=== PATIENT | female | born 1970 | race Caucasian/White ===

== ENCOUNTER 2020-08-22 17:27 | Emergency (ER) | payer OTHER ==
[2020-08-22] MEDS ORDERED: DIPHTH,PERTUSS(ACELL),TET 0.5 ML DISP.SYRIN IM ONE ×2 (17:49→17:50)
[2020-08-22 17:51] VITALS: BP 171/81; PULSE 75; TEMP 98.6; BMI 26.4
--- NOTE | 2020-08-22 18:12 | PDOC ---
History of Present Illness - General Chief Complaint: Injury Stated Complaint: L HAND LACERATION Time Seen by Provider: 08/22/20 17:40 History Source: Patient Exam Limitations: Clinical Condition - History of Present Illness Initial Comments: 08/22/20 18:26 Patient with no significant past medical history present with complaint of laceration to left hand over thumb area status post accidentally cutting the hand with a kitchen knife while cutting planting. Patient does not recall last tetanus vaccine. Denies difficulty moving left thumb. Denies numbness or tingling sensation. Denies any other symptoms. Patient has not taken anything for symptoms Timing/Duration: reports: just prior to arrival Location: reports: hands (left thumb laceration) Respiratory Risk Factors: reports: no cause identified Past History - Medical History Allergies/Adverse Reactions: Allergies Allergy/AdvReac Type Severity Reaction Status Date / Time No Known Allergies Allergy Verified 08/22/20 17:34 Home Medications: Ambulatory Orders Diphenhydramine HCl [Benadryl -] 25 mg PO Q4H PRN #18 capsule 01/13/16 Epinephrine 0.3 mg IM ONCE PRN #2 ml 01/13/16 Ranitidine [Zantac -] 150 mg PO BID #8 tablet 01/13/16 predniSONE [Deltasone] 20 mg PO BID #8 tablet 01/13/16 Amox-Tr/K Cl [Augmentin - 875Mg Tablet] 1 tab PO BID #14 tablet 08/22/20 Ibuprofen 600 mg PO Q8H PRN #16 tablet 08/22/20 COPD: No HTN: Yes - Reproductive History Is Patient Now?: No - Psycho-Social/Smoking History Smoking Status: No Smoking History: Never smoked Have you smoked in the past 12 months: No Number of Cigarettes Smoked Daily: 0 - Substance Abuse Hx (Audit-C & DAST Scrn) How often the patient has a drink containing alcohol: Never Score: In Men: 4 or > Positive; In Women: 3 or > Positive: 0 Screen Result (Pos requires Nsg. Audit-10AR): Negative In the last yr the pt used illegal drug/Rx for NonMed reason: No Score: Yes response is considered Positive: 0 Screen Result (Positive result requires Nsg. DAST-10): Negative Review of Systems - Review of Systems Able to Perform ROS?: Yes Is the patient limited Occitan proficient: No Constitutional: No: Chills, Fever, Malaise HEENTM: No: Symptoms Reported Respiratory: No: Symptoms reported Cardiac (ROS): No: Symptoms Reported ABD/GI: No: Symptoms Reported Musculoskeletal: Yes: Symptoms Reported, See HPI, Muscle Pain (left thumb pain) Integumentary: Yes: Symptoms Reported, See HPI, Other (left thumb laceration) Neurological: No: Symptoms reported, Numbness, Paresthesia, Tingling, Weakness All Other Systems: Reviewed and Negative *Physical Exam - Vital Signs Last Vital Signs Temp Pulse Resp BP Pulse Ox 98.6 F 75 16 171/81 H 100 08/22/20 17:35 08/22/20 17:35 08/22/20 17:35 08/22/20 17:35 08/22/20 17:35 - Physical Exam 08/22/20 18:21 GENERAL: Well developed, well nourished. Awake and alert. No acute distress. PULMONARY: No evidence of respiratory distress. MUSCULOSKELETAL : Moderate tenderness over dorsal aspect of proximal phalange of left thumb over 3 cm linear superficial laceration. Full range of motion of left thumb. 5 out of 5 strength left thumb. No bony deformities SKIN: Warm and dry. Normal capillary refill. 3 cm superficial linear laceration over dorsal aspect of proximal phalange of left thumb with minimal bleeding NEUROLOGICAL: Alert, awake, appropriate. No motor deficits in the lower extremities. Gait is normal without ataxia. PSYCHIATRIC: Cooperative. Good eye contact. Appropriate mood and affect. General Appearance: Yes: Nourished, Appropriately Dressed. No: Apparent Distress Procedures - Laceration/Wound Repair Left Posterior Proximal Dorsal Hand 1st digit Wound Length: 2.6 to 5.0 cm (3cm) Wound Explored: clean Wound's Depth, Shape: superficial, linear Irrigated w/ Saline: Yes Betadine Prep: Yes Anesthesia: 1% Lidocaine Amount of Anesthetic (ccs): 2 Wound Repaired With: Sutures Suture Size/Type: 4:0, nylon Number of Sutures: 6 Layer Closure: No Sterile Dressing Applied: Yes Splint Applied: No Sling Applied: No Progress: 08/22/20 18:25 3 cm linear laceration to dorsal aspect of proximal aspect of left thumb extending to left thenar muscle cleaned with Betadine and infiltrated with 2 cc 1% lidocaine. Wound copiously irrigated with normal saline. Wound closed with 6 interrupted 4-0 nylon sutures with close approximation. Hemostasis achieved. Wound covered with adhesive bandage. Left hand and wrist wrapped with stretch gauze. Tetanus vaccine given. Patient tolerated procedure well ED Treatment Course - Medications Given in the ED: ED Medications Discontinued Medications Generic Name Dose Route Start Last Admin Trade Name Wellingtonq PRN Reason Stop Dose Admin Diphtheria/Tetanus/Acell Pertussis 0.5 ml 08/22/20 17:49 08/22/20 17:54 Boostrix - IM 08/22/20 17:50 0.5 ml .ONCE ONE Administration Medical Decision Making - Medical Decision Making 08/22/20 18:26 Patient with no significant past medical history present with complaint of laceration to left hand over thumb area status post accidentally cutting the hand with a kitchen knife while cutting planting. Patient does not recall last tetanus vaccine. Denies difficulty moving left thumb. Denies numbness or tingling sensation. Denies any other symptoms. Patient has not taken anything for symptoms Exam significant for 3 cm superficial laceration to dorsal aspect of left proximal thumb extending to thenar muscle with minimal bleeding. Full range of motion of left thumb. Normal strength left thumb 3 cm linear laceration to dorsal aspect of proximal aspect of left thumb extending to left thenar muscle cleaned with Betadine and infiltrated with 2 cc 1% lidocaine. Wound copiously irrigated with normal saline. Wound closed with 6 interrupted 4-0 nylon sutures with close approximation. Hemostasis achieved. Wound covered with adhesive bandage. Left hand and wrist wrapped with stretch gauze. Tetanus vaccine given. Patient tolerated procedure well Patient stable for discharge on Augmentin antibiotic for infection prophylaxis and Motrin PRN for pain. Patient educated on continues home wound care. Patient stable for discharge with follow-up in 1 week for suture removal Discharge - Discharge Information Problems reviewed: Yes Clinical Impression/Diagnosis: Laceration of left thumb without complication Qualifiers: Encounter type: initial encounter Qualified Code(s): S61.012A - Laceration without foreign body of left thumb without damage to nail, initial encounter Condition: Stable Disposition: HOME - Admission No - Additional Discharge Information Prescriptions: Amox-Tr/K Cl [Augmentin - 875Mg Tablet] 1 tab PO BID #14 tablet Ibuprofen 600 mg PO Q8H PRN #16 tablet PRN Reason: pain - Follow up/Referral - Patient Discharge Instructions Patient Printed Discharge Instructions: DI for Laceration Repair -- Simple Additional Instructions: Keep wound clean and dry for the next 24 hours. Apply bacitracin to wound twice a day. Take prescribed antibiotics and finish it. Take prescribed Motrin as needed for pain. Follow-up in 1 week for suture removal - Post Discharge Activity
== END 2020-08-22 18:15 | disposition home or self-care (01) ==
LOC: JER 17:27
PROC: 0HQGXZZ Repair Left Hand Skin, External Approach (ICD-10-PCS; principal; 2020-08-22)
PROC: 3E0234Z Introduction of Serum, Toxoid and Vaccine into Muscle, Percutaneous Approach (ICD-10-PCS; 2020-08-22)
DX: S61.012A Laceration without foreign body of left thumb without damage to nail, initial encounter (principal)
CPT/HCPCS: 90715; 99284-25

== ENCOUNTER 2020-09-02 14:44 | Emergency (ER) | payer OTHER ==
[2020-09-02 14:51] VITALS: BP 139/75; PULSE 85; TEMP 97.9; BMI 26.4
--- NOTE | 2020-09-02 15:19 | PDOC ---
History of Present Illness - General Chief Complaint: Suture/Staple Removal(Here) Stated Complaint: REMOVE STITCHES Time Seen by Provider: 09/02/20 14:58 History Source: Patient Exam Limitations: No Limitations - History of Present Illness Initial Comments: 09/02/20 15:17 50 year old female here for suture removal to left hand. Initial injury 9 days ago, denies fever chills discharge for wound. Past History - Medical History Allergies/Adverse Reactions: Allergies Allergy/AdvReac Type Severity Reaction Status Date / Time No Known Allergies Allergy Verified 09/02/20 14:48 Home Medications: Ambulatory Orders Diphenhydramine HCl [Benadryl -] 25 mg PO Q4H PRN #18 capsule 01/13/16 Epinephrine 0.3 mg IM ONCE PRN #2 ml 01/13/16 Ranitidine [Zantac -] 150 mg PO BID #8 tablet 01/13/16 predniSONE [Deltasone] 20 mg PO BID #8 tablet 01/13/16 Amox-Tr/K Cl [Augmentin - 875Mg Tablet] 1 tab PO BID #14 tablet 08/22/20 Ibuprofen 600 mg PO Q8H PRN #16 tablet 08/22/20 COPD: No HTN: Yes - Reproductive History Is Patient Now?: No - Psycho-Social/Smoking History Smoking Status: No Smoking History: Never smoked Have you smoked in the past 12 months: No Number of Cigarettes Smoked Daily: 0 - Substance Abuse Hx (Audit-C & DAST Scrn) How often the patient has a drink containing alcohol: Never Score: In Men: 4 or > Positive; In Women: 3 or > Positive: 0 Screen Result (Pos requires Nsg. Audit-10AR): Negative *Physical Exam - Vital Signs Last Vital Signs Temp Pulse Resp BP Pulse Ox 97.9 F 85 16 139/75 100 09/02/20 14:48 09/02/20 14:48 09/02/20 14:48 09/02/20 14:48 09/02/20 14:48 - Physical Exam 09/02/20 15:18 AOx3 NAD CTA RRR Left hand: well healing 3cm wound with sutures in place. No erythema or swelling Medical Decision Making - Medical Decision Making 09/02/20 15:18 50 year old female here for suture removal VSS Sutures removed without complication Pt is safe and stable for discharge Return precautions given Discharge - Discharge Information Problems reviewed: Yes Clinical Impression/Diagnosis: Encounter for removal of sutures Condition: Stable Disposition: HOME - Follow up/Referral - Patient Discharge Instructions Patient Printed Discharge Instructions: DI for Suture Removal Print Language: AUSTRIAN - Post Discharge Activity
--- OUTSIDE RECORDS SUMMARY | 2020-09-02 15:33 | XMS ---
:1970 Author Organization [facility] Care Team Providers Name Role Phone TAYA HALL Unavailable Unavailable Anyichie, Nonyelu Bassam ARGUETA Unavailable Unavailable Anyichie, I Unavailable Unavailable Anyichie, I Unavailable Unavailable Anyichie, I Unavailable Unavailable Anyichie, I Unavailable Unavailable Anyichie, I Unavailable Unavailable VANDA Fofana Unavailable Unavailable Re-disclosure Warning The records that you are about to access may contain information from federally- assisted alcohol or drug abuse programs. If such information is present, then the following federally mandated warning applies: This information has been disclosed to you from records protected by federal confidentiality rules (42 CFR part 2). The federal rules prohibit you from making any further disclosure of this information unless further disclosure is expressly permitted by the written consent of the person to whom it pertains or as otherwise permitted by 42 CFR part 2. A general authorization for the release of medical or other information is NOT sufficient for this purpose. The Federal rules restrict any use of the information to criminally investigate or prosecute any alcohol or drug abuse patient.The records that you are about to access may contain highly sensitive health information, the redisclosure of which is protected by Article 27-F of the [place] State Public Health law. If you continue you may haveaccess to information: Regarding HIV / AIDS; Provided by facilities licensed or operated by the [facility] Office of Mental Health; or Provided by the [facility] Office for People With Developmental Disabilities. If such information is present, then the following [facility] mandated warning applies: This information has been disclosed to you from confidential records which are protected by state law. State law prohibits you from making any further disclosure of this information without the specific written consent of the person to whom it pertains, or as otherwise permitted by law. Any unauthorized further disclosure in violation of state law may result in a fine or penitentiary sentence or both. A general authorization for the release of medical or other information is NOT sufficient authorization for further disclosure. Encounters Encounter Providers Location Date Indications Data Source(s ) Outpatient Admitter: Kristie Llamas 06/26/2020 [facility] EDT Outpatient Attender: Kristie Llamas 06/26/2020 [facility] MDAdmitter: 06:51:00 AM Med [facility] Kristie Chen EDT - MDReferrer: Kristie 06/26/2020 Gustavo ARGUETA 11:45:00 AM EDT Outpatient Attender: TAYA Llamas 06/21/2020 [facility] 07:25:00 AM [facility] Center LAdmitter: TAYA BAIN LReferrer: TAYA Retana Outpatient Attender: KAZ Llamas 02/01/2020 [facility] 10:35:00 AM Medical C enter PAdmitter: KAZ MCCURDY PReferrer: KAZ Fofana Insurance Providers Payer name Policy type Policy ID Covered Covered democrat's Policy P debora / Coverage democrat ID relationship to [place] Inf ormation type almeida AFFINITY [id number] SP [id number] ESSENTIAL PLAN 1 2 AFFINITY O [id number] 01 [id number] ESSENTIALS-COM MERCIAL AFFINITY O [id number] 01 [id number] HEALTH PLAN Medicaid [id number] S [id number] Wrap Claims Dental [id number] S [id number] Dentaquest MKD [place] [facility] [id number] S [id number] [facility] Medicaid [id number] S [id number] Regular Clinic Visit [facility] [id number] S [id number] [place] Medicaid Problems, Conditions, and Diagnoses Code Display Name Description Problem Type Effective Data Sour ce(s) Dates E78.5 Hyperlipidemia, HYPERLIPIDEMIA, Diagnosis 06/26/2020 [facility] unspecified UNSPECIFIED 06:51:[address] EDT J45.909 Unspecified UNSPECIFIED Diagnosis 06/26/2020 [facility] asthma, ASTHMA, 06:51:00 AM Medical Eun r uncomplicated UNCOMPLICATED EDT I10 Essential ESSENTIAL Diagnosis 06/26/2020 [facility] (primary) (PRIMARY) 06:51:00 AM Medical Eun [facility] hypertension HYPERTENSION EDT D25.1 Intramural INTRAMURAL Diagnosis 06/26/2020 [facility] leiomyoma of LEIOMYOMA OF 06:51:00 AM Medical C enter uterus UTERUS EDT 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 [facility] Vilchis uteri UTERI 06:51:00 AM Medical rEice r EDT Z01.818 Encounter for ENCOUNTER FOR Diagnosis 02/01/2020 [facility] other OTHER 10:35:00 AM Medical Eun r preprocedural PREPROCEDURAL EDT examination EXAMINATION J45.40 Moderate MODERATE Diagnosis 02/01/2020 [facility] persistent asthma, PERSISTENT ASTHMA, 10:35:00 AM Medical Center uncomplicated UNCOMPLICATED EDT Results ID Date Data Source [id number] 06/21/2020 12:00:00 AM EDT [facility] Name Value Range Interpretation Code Description Data Zainab rce(s) Supporting Document(s ) 2019-nCoV [facility] RNA XXX CELIA+probe- Imp This lab was ordered by [facility] and reported by [facility]. Procedure
== END 2020-09-02 15:42 | disposition home or self-care (01) ==
LOC: JERFT 14:44
DX: Z48.02 Encounter for removal of sutures (principal)
CPT/HCPCS: 99281-25

== ENCOUNTER 2024-05-17 16:23 | Emergency (ER) | payer OTHER ==
[2024-05-17 16:34] VITALS: RESP 18; BMI 26.6
[2024-05-17 17:58] LABS: BASO % 0.5 % (0-2.0); EOS % 0.5 % (0-4.5); HEMATOCRIT 42.6 % (32.4-45.2); HEMOGLOBIN 13.9 GM/dL (10.7-15.3); MCH 29.7 pg (25.7-33.7); MCHC 32.6 g/dl (32.0-36.0); MEAN CELL VOLUME 91.2 fl (80-96); MEAN PLT VOLUME 9.7 fl (7.5-11.1); MONO % 7.8 % (3.8-10.2); NEUT % 74.2 % (42.8-82.8); PH,URINE 7.5 (5.0-8.0); PLATELET COUNT 177 10^3/uL (134-434); RBC 4.67 M/mm3 (3.60-5.2); RDW 14.6 % (11.6-15.6); URINE APPEARANCE CLEAR; URINE BILIRUBIN NEGATIVE (NEGATIVE); URINE COLOR YELLOW; URINE GLUCOSE (UA) NEGATIVE (NEGATIVE); URINE KETONE NEGATIVE (NEGATIVE); URINE LEUK ESTERASE NEGATIVE (NEGATIVE); URINE NITRITE NEGATIVE (NEGATIVE); URINE PROTEIN NEGATIVE (NEGATIVE); WHITE BLOOD COUNT 13.8 K/mm3 (4.0-10.0)
[2024-05-17] MEDS: ACETAMINOPHEN 1000 MG/100 ML BAG IVPB ONE (18:08)
[2024-05-17] MEDS ORDERED: ACETAMINOPHEN INJECTION 100 ML IVPB ONE (18:09)
[2024-05-17 19:00] LABS: POTASSIUM 3.9 mmol/L (3.5-5.1)
[2024-05-17 19:02] LABS: ALBUMIN 3.7 g/dl (3.4-5.0); BLOOD UREA NITROGEN 18.1 mg/dL (7-18); CALCIUM 9.3 mg/dL (8.5-10.1)
[2024-05-17 19:05] LABS: CREATININE 0.8 mg/dL (0.55-1.3)
[2024-05-17 19:07] LABS: BILIRUBIN,TOTAL 0.9 mg/dL (0.2-1); TOT PROT 7.4 g/dl (6.4-8.2)
[2024-05-17 20:20] VITALS: BP 143/71; PULSE 73; TEMP 98.1
== END 2024-05-17 22:52 | disposition home or self-care (01) ==
LOC: JER 16:23
PROC: 3E033NZ Introduction of Analgesics, Hypnotics, Sedatives into Peripheral Vein, Percutaneous Approach (ICD-10-PCS; principal; 2024-05-17)
DX: K57.32 Diverticulitis of large intestine without perforation or abscess without bleeding (principal); R10.12 Left upper quadrant pain; R10.32 Left lower quadrant pain; Z20.822 Contact with and (suspected) exposure to COVID-19
CPT/HCPCS: 0241U-QW; 36415; 74177-TC; 80053; 81003; 83605; 83690; 84703; 85025; 87086; 87186; 99285-25; J0131

== ENCOUNTER 2024-07-13 08:56 | Day surgery (SDC) | payer OTHER ==
[2024-07-13 09:34] VITALS: BMI 28.6
[2024-07-13 13:28] VITALS: TEMP 98
[2024-07-13 14:41] VITALS: BP 113/55; PULSE 52; RESP 18
== END 2024-07-13 14:41 | disposition home or self-care (01) ==
LOC: JASU-ENDO 08:56
PROVIDERS: ATTEND Internal Medicine Gastroenterology
PROC: 0DJD8ZZ Inspection of Lower Intestinal Tract, Via Natural or Artificial Opening Endoscopic (ICD-10-PCS; principal; 2024-07-13 10:00)
DX: Z12.11 Encounter for screening for malignant neoplasm of colon (principal); K57.30 Diverticulosis of large intestine without perforation or abscess without bleeding; I10 Essential (primary) hypertension